=== PATIENT | male | born 1995 | race Caucasian/White ===

== ENCOUNTER 2024-07-09 14:13 | Emergency (ER) | payer OTHER, SELFPAY ==
--- NOTE | ~2024-07-09 | XR_ITS ---
HISTORY: Pain/swelling COMPARISON: None TECHNIQUE: 4 views of the left knee were performed FINDINGS: No acute or subacute fracture, erosion, lytic or sclerotic lesion. Medial tibiofemoral joint space narrowing is identified. No suprapatellar joint effusion is identified. The infrapatellar joint space is clear. IMPRESSION: Degenerative disease, without acute fracture. Reviewed, dictated and finalized at location A. OSTAT OPERATOR
[2024-07-09 14:21] VITALS: BP 151/94; PULSE 90; RESP 18; TEMP 36.4; O2SAT 98
--- NOTE | 2024-07-09 15:06 | ED_ITS ---
HPI - Extremity Injury (Lower) General Chief Complaint: Extremity Injury, Lower Stated Complaint: fall, L knee injury Time Seen by Provider: 07/09/24 15:06 Source: patient Mode of arrival: ambulatory Limitations: no limitations History of Present Illness HPI Narrative: This is a 28-year-old male who presents to the ED via EMS for chief complaint of left knee injury today. Patient works for [employer] and was stepping off his truck when he felt a pop in his left knee. States that he was caring very heavy boxes. States his knee has been bothering for quite some time but today was much worse with feeling this ?pop. Denies numbness, weakness or any further injury. Related Data Allergies Allergy/AdvReac Type Severity Reaction Status Date / Time No Known Allergies Allergy Verified 07/09/24 14:49 Review of Systems Review of Systems: All systems as dictated in HPI Exam Narrative: GENERAL: Well-appearing, well-nourished, and in no acute distress. HEAD: Normocephalic, atraumatic. EYES: PERRLA and EOMI. ENT: Nares clear, no rhinorrhea or epistaxis. Mucous membranes moist. Oropharynx without tonsillar hypertrophy exudate or other lesions. NECK: Supple. No adenopathy or masses. CHEST: No respiratory distress. Clear to auscultation. No wheezes rales or rhonchi HEART: Regular rate and rhythm. No murmur heard. Normal peripheral pulses. ABDOMEN: Soft, nontender, nondistended, normal active bowel sounds. MSK: LLE: Mild swelling to the left knee. Mild tenderness to the left joint line. Neurovascularly intact distally. able to fully extend the knee RLE: Benign SKIN: Warm, dry, no rash. NEURO: Alert and oriented x4. No focal deficits. PSYCH: Normal mood and affect. Course Vital Signs Vital signs: Vital Signs Temperature 97.6 F 07/09/24 14:21 Pulse Rate 90 07/09/24 14:21 Respiratory Rate 18 07/09/24 14:21 Blood Pressure 151/94 H 07/09/24 14:21 Pulse Oximetry 98 07/09/24 14:21 Temperature 97.6 F 07/09/24 14:21 Pulse Rate 86 07/09/24 16:50 Respiratory Rate 18 07/09/24 16:50 Blood Pressure 140/93 H 07/09/24 16:50 Pulse Oximetry 98 0215/25 16:50 MDM - Extremity Injury (Lower) MDM Narrative Medical decision making narrative: This is a 28-year-old male who presents to the ED for chief complaint of left knee injury that occurred today while at work for [employer]. Vitals are normal. Exam remarkable for the above. No significant traumatic findings. Neurovascular intact distally. Left knee x-rays showed no acute osseous findings. Patient was given Motrin and Tylenol here. Given knee immobilizer and crutches here. Encouraged follow-up with PCP on this issue. Patient will be discharged in stable condition. Supportive measures discussed and return precautions given. Patient is understanding and agreeable with plan for discharge with PCP follow-up. Differential Diagnosis Differential diagnosis: Likely ankle sprain and strain, acute internal derangement of knee, fracture of femur and fracture of hip Discharge Plan Discharge Clinical Impression: Acute internal derangement of knee Patient Disposition: Home, Self-Care Condition: Stable Instructions: Antibiotic Form Additional Instructions: Your exam today is reassuring. This is probably a sprained knee. Please use knee immobilizer and crutches until able to bear weight. Use Tylenol 500 mg and ibuprofen 600 mg every 6 hours as needed for pain control. If you have any new or worsening symptoms please return to the ER for further evaluation. Patient Language: Namibian Follow-up/Referrals: UNKNOWN,DOCTOR [Non-Staff] - Stand Alone Forms: Work/School Release IP Time of Disposition: 16:20
--- OUTSIDE RECORDS SUMMARY | 2024-07-09 15:20 | XMS_ITS | Clinical Summary ---
Author Organization [facility] Address [address] [place] [address] Care Team Providers Care Can Runner Name Role Phone Unavailable Primary Care Provider Unavailabl e Encounters Date Type Department Care Team Description 06/15/2024 External Device Data ST[facility] ABSTRACTION Provider, Abstract 06/15/2024 External Device Data [facility] ABSTRACTION Provider, Abstract 06/08/2024 External Device Data [facility] ABSTRACTION Provider, Abstract from Last 3 Months Social History Tobacco Use Types Packs/Day Years Used Date Smoking Tobacco: Never Assessed Sex and Gender Information Value Date Recorded Sex Assigned at Not on file Legal Sex Male 10:48 AM CDT Gender Identity Not on file Sexual Orientation Not on file Plan of Treatment Health Maintenance Due Date Last Done Comments DTAP/TDAP/TD VACCINES (1 - Tdap) 12/30/2014 HEPATITIS B VACCINES (1 of 3 - 19+ 3-dose series) 12/30/2014 INFLUENZA VACCINE (#1) 2023 HPV VACCINES Aged Out No longer eligi ble based on patient's age to complete this topic [place] [address]
--- OUTSIDE RECORDS SUMMARY | 2024-07-09 15:20 | XMS_ITS | Clinical Summary ---
Author Organization [facility] Address [facility] [place] [address] Care Team Providers Care Flower Machine Operator Name Role Phone None, Provider MD Primary Care Provider Unavaila ble Allergies No known active allergies Medications ondansetron (ZOFRAN-ODT) 4 MG disintegrating tablet Take 1 tablet (4 mg total) by mouth every 8 (eight) hours as needed for Nausea. 20 tablet Active Family History Medical History Relation Comments No Known Problems Father No Known Problems Mother Relation Status Comments Father Mother Social History Tobacco Use Types Packs/Day Years Used Date Smoking Tobacco: Every Day Cigarettes Smokeless Tobacco: Never Tobacco Cessation:Ready to Q uit: Not Asked Alcohol Use Standard Drinks/Week Comments Yes 0 (1 standard drink = 0.6 oz pur e alcohol) Sex and Gender Information Value Date Recorded Sex Assigned at Not on file Legal Sex Male 7:56 PM CDT Gender Identity Not on file Sexual Orientation Not on file Last Filed Vital Signs Vital Sign Reading Time Taken Comments Blood Pressure 142/82 08/20/2023 10:15 AM CDT Pulse 76 08/20/2023 10:15 AM CDT Temperature 36.4 C (97.5 F) 08/20/2023 10:15 AM CDT Respiratory Rate 18 08/20/2023 10:15 AM CDT Oxygen Saturation 100% 08/20/2023 10:15 AM CDT Inhaled Oxygen Concentration - - Weight 104.3 kg (230 lb) 08/20/2023 10:15 AM CDT Height 177.8 cm (5' 10 ) 08/20/2023 10:15 AM CDT Body Mass Index 33 08/20/2023 10:15 AM CDT Plan of Treatment Health Maintenance Due Date Last Done Comments Annual Physical 12/30/1998 Pneumococcal Vaccine: Pediat rics (0 to 5 Years) and At-Risk Patients (6 to 64 Years) (1 of 2 - PCV) 12/30/2001 HPV Vaccines (2 - Male 3-dos e series) 09/20/2012 08/23/2012 Hepatitis C 12/30/2013 DTaP, Tdap and Td Vaccines ( 1 - Tdap) 12/30/2014 Hepatitis B Vaccines (1 of 3 - 19+ 3-dose series) 12/30/2014 COVID-19 Vaccine (1 - 2023-2 5 season) 2024 Influenza Adult (#1) 2024 Meningococcal Vaccine Completed 11/08/2013 Meningococcal B Vaccine Aged Out No l onger eligible based on patient's age to complete this topic RSV Immunizations Under 20 Months Aged Out No longer eligible based on patient's age to complete this topic Insurance MEDICAID Care Teams Flower Machine Operator Relationship Specialty Start Date End Date None, Provider, PCP - General UNKNOWN PHYSICIAN SPECIALTY 08/20/23
--- OUTSIDE RECORDS SUMMARY | 2024-07-09 15:21 | XMS_ITS | Referral Summary ---
Author Organization [facility] Address [address] [place] [id number] Care Team Providers Care Supervisor Photoengraving Name Role Phone Unknown, Notinfile Primary Care Provider Unavail able Encounters Date Type Department Care Team Description 06/23/2024 8:29 PM BUSINESS MANAGEMENT MANAGER - 06/23/2024 9:44 PM [facility] Emergency [facility] Emergency Department [address] [place] [id number] Fall, initial encounter (Primary Dx); Acute midline low back pain without sciatica Discharge Disposition: Discharge to home or self care from Last 3 Months Allergies No known active allergies Medications al & mag hydroxide with simethicone-diphenh ydramine-lidocaine (MAGIC MOUTHWASH) suspension 1-1-1 Swish and swallow 10 mL every 4 (four) hours as needed (pain) 200 mL 3 Active oseltamivir (TAMIFLU) 75 mg capsule Take 1 capsule (75 mg total) by mouth every 12 (twelve) hours 10 capsule 4 Active ondansetron ODT (ZOFRAN-ODT) 4 mg disintegrating tablet Take 1 tablet (4 mg total) by mouth every 8 (eight) hours as needed for nausea or vomiting 20 tablet 4 Active promethazine-DM (PROMETHAZINE-DM) 1.25-3 mg/mL syrup Take 5 mL by mouth 4 (four) times a day as needed for cough 118 mL 4 Active albuterol HFA (PROVENTIL HFA,VENTOLIN HFA,PROAIR HFA) 90 mcg/actuation inhaler Inhale 2 puffs every 4 (four) hours as needed for wheezing 1 each 4 08/27/19 25 Active guaiFENesin (ROBITUSSIN) syrup 100 mg/5 mL Take 5-10 mL (100-200 mg total) by mouth every 4 (four) hours as needed for cough 60 mL 4 Active ondansetron ODT (ZOFRAN-ODT) 4 mg disintegrating tablet Take 1 tablet (4 mg total) by mouth every 6 (six) hours as needed for nausea or vomiting 20 tablet 4 Active amoxicillin-clavula son (AUGMENTIN) 875-125 mg per tablet Take 1 tablet by mouth every 12 (twelve) hours 20 tablet 4 Active predniSONE (DELTASONE) 50 mg tablet Take 1 tablet (50 mg) by mouth daily 5 tablet 4 Active HYDROcodone-acetami nophen (NORCO) 5-325 mg per tabletIndications:P ain Take 1 tablet by mouth every 6 (six) hours as needed for pain 20 tablet 4 Active naproxen (NAPROSYN) 500 mg tablet Take 1 tablet (500 mg total) by mouth 2 (two) times a day with meals 14 tablet 5 Active lidocaine (LIDODERM) 5 % Place 1 patch on the skin daily Remove & discard patch within 12 hours or as directed by MD. 7 patch 5 Active Social History Tobacco Use Types Packs/Day Years Used Date Smoking Tobacco: Never Assessed Personal Safety Answer Date Recorded Have you ever been in or are you currently in a harmful physical or emotional relationship or is someone making you feel afraid or unsafe? Denies 06/23/2024 Sex and Gender Information Value Date Recorded Sex Assigned at Not on file Legal Sex Male 6:18 PM BUSINESS MANAGEMENT MANAGER Gender Identity Not on file Sexual Orientation Not on file Last Filed Vital Signs Vital Sign Reading Time Taken Comments Blood Pressure 103/67 06/23/2024 9:30 PM BUSINESS MANAGEMENT MANAGER Pulse 71 06/23/2024 9:30 PM BUSINESS MANAGEMENT MANAGER Temperature 37.2 C (99 F) 06/23/2024 6:47 PM BUSINESS MANAGEMENT MANAGER Respiratory Rate 19 06/23/2024 6:47 PM BUSINESS MANAGEMENT MANAGER Oxygen Saturation 97% 06/23/2024 9:30 PM BUSINESS MANAGEMENT MANAGER Inhaled Oxygen Concentration - - Weight 102.9 kg (226 lb 13.7 oz) 06/23/2024 6:47 PM BUSINESS MANAGEMENT MANAGER Height 177.8 cm (5' 10 ) 06/23/2024 6:47 PM BUSINESS MANAGEMENT MANAGER Body Mass Index 32.55 06/23/2024 6:47 PM BUSINESS MANAGEMENT MANAGER Plan of Treatment Not on file Procedures Procedure Name Priority Date/Time Associated Diagnosis Comments CT LUMBAR SPINE WO CONTRAST ED 06/23/2024 7:31 PM BUSINESS MANAGEMENT MANAGER from Last 3 Months Results * CT Lumbar Spine WO Contrast (06/23/2024 7:31 PM BUSINESS MANAGEMENT MANAGER) Anatomical Region Laterality Modality Spine N/A Computed Tomogra phy 06/23/2024 7:34 PM BUSINESS MANAGEMENT MANAGER Narrative 06/23/2024 7:36 PM BUSINESS MANAGEMENT MANAGER EXAM DESCRIPTION: CT LUMBAR SPINE WO CONTRAST REASON FOR STUDY: Low back pain, trauma, lower back pain Pt states today at approx 1330 he slipped on ice and landed on his bottom, now having lower back pain on both sides/middle. Did not hit head. Per ordering Dr, wanted scan to go through coccyx. TECHNIQUE: Axial images acquired through the lumbar spine without intravenous contrast. Reconstructed coronal and sagittal MPR images reviewed. All images stored on PACS. Automated exposure control was used as a dose optimization technique for this examination. COMPARISON: None FINDINGS: SEGMENTATION: No transitional anatomy. The lowest well-developed disc space is labeled L5-S1. ALIGNMENT: Normal. VERTEBRAE: No fracture. Vertebral heights well-maintained. DISC HEIGHT: Well-maintained. HARDWARE: None in the spine. INDIVIDUAL DISC LEVELS: Canal contents are not well seen by CT. L1-2: No significant osseous spinal canal or neuroforaminal stenosis. L2-3: No significant osseous spinal canal or neuroforaminal stenosis. L3-4: No significant osseous spinal canal or neuroforaminal stenosis. L4-5: No significant osseous spinal canal or neuroforaminal stenosis. L5-S1: Mild circumferential bulging is seen. Some minimal marginal spurring is seen of the endplates. Canal and neural foraminal openings are mildly narrowed. VISUALIZED RIBS: No fractures. SOFT TISSUES: No significant or acute finding in adjacent soft tissues. OTHER: No other significant finding. IMPRESSION: No lumbar spine fracture. Mild spondylosis at L5-S1. The sacrum and coccyx was included on this study. No evidence of acute injury of the bones is seen. THIS IS AN ELECTRONICALLY VERIFIED FINAL REPORT 06/23/2024 7:36 PM - Electronically signed by Grady Fraser M.D. KH: RAVI Report ID: [id number] Reading Location: [id number] Procedure Note Grady Fraser MD - 06/23/2024 EXAM DESCRIPTION: CT LUMBAR SPINE WO CONTRAST REASON FOR STUDY: Low back pain, trauma, lower back pain Pt states today at approx 1330 he slipped on ice and landed on his bottom,now having lower back pain on both sides/middle. Did not hit head. Perordering Dr, wanted scan to go through coccyx. TECHNIQUE: Axial images acquired through the lumbar spine withoutintravenous contrast. Reconstructed coronal and sagittal MPR images reviewed. Allimages stored on PACS. Automated exposure control was used as a dose optimization technique forthis examination. COMPARISON: None FINDINGS: SEGMENTATION: No transitional anatomy. The lowestwell-developed disc space is labeled L5-S1. ALIGNMENT: Normal. VERTEBRAE: No fracture. Vertebral heights well-maintained. DISC HEIGHT: Well-maintained. HARDWARE: None in the spine. INDIVIDUAL DISC LEVELS: Canal contents are not well seen by CT. L1-2: No significant osseous spinal canal or neuroforaminal stenosis. L2-3: No significant osseous spinal canal or neuroforaminal stenosis. L3-4: No significant osseous spinal canal or neuroforaminal stenosis. L4-5: No significant osseous spinal canal or neuroforaminal stenosis. L5-S1: Mild circumferential bulging is seen. Some minimal marginalspurring is seen of the endplates. Canal and neural foraminal openings are mildly narrowed. VISUALIZED RIBS: No fractures. SOFT TISSUES: No significant or acute finding in adjacent soft tissues. OTHER: No other significant finding. IMPRESSION: No lumbar spine fracture. Mild spondylosis at L5-S1. The sacrum and coccyx was included on this study. No evidence of acute injury of the bones is seen. THIS IS AN ELECTRONICALLY VERIFIED FINAL REPORT 06/23/2024 7:36 PM - Electronically signed by Grady Fraser M.D. KH: RAVI Report ID: [id number] Reading Location: [id number] Stella Rodri [facility] IMG CT PROCEDURES Final Result from Last 3 Months Insurance [facility] Care Teams Supervisor Photoengraving Relationship Specialty Start Date End Date Unknown, Notinfile PCP - General 02/08/24
--- OUTSIDE RECORDS SUMMARY | 2024-07-09 15:21 | XMS_ITS | Clinical Summary ---
Author Organization [facility] Address [address] [place] [address] Care Team Providers Care Steamtable Worker Name Role Phone Unknown, Notinfile Primary Care Provider Unavail able Allergies No known active allergies Medications al [...] directed by MD. 7 patch 5 Active Encounters Date Type Department Care Team Description 06/23/2024 8:29 PM WET END HELPER - 06/23/2024 9:44 PM WET END HELPER Emergency [facility] Emergency Department [address] [place] [address] Fall, initial encounter (Primary Dx); Acute midline low back pain without sciatica Discharge Disposition: Discharge to home or self care from Last 3 Months Social History Tobacco [...] on file Legal Sex Male 6:18 PM WET END HELPER Gender Identity Not on file Sexual Orientation Not on file Last Filed Vital Signs Vital Sign Reading Time Taken Comments Blood Pressure 103/67 06/23/2024 9:30 PM WET END HELPER Pulse 71 06/23/2024 9:30 PM WET END HELPER Temperature 37.2 C (99 F) 06/23/2024 6:47 PM WET END HELPER Respiratory Rate 19 06/23/2024 6:47 PM WET END HELPER Oxygen Saturation 97% 06/23/2024 9:30 PM WET END HELPER Inhaled Oxygen Concentration - - Weight 102.9 kg (226 lb 13.7 oz) 06/23/2024 6:47 PM WET END HELPER Height 177.8 cm (5' 10 ) 06/23/2024 6:47 PM WET END HELPER Body Mass Index 32.55 06/23/2024 6:47 PM WET END HELPER Plan of Treatment Health Maintenance Due Date Last Done Comments Depression Screening 1995 Hepatitis C Screening 1995 DTaP/Tdap/Td Vaccine (1 - Tdap) 12/30/2006 Varicella Vaccines (1 of 2 - 13+ 2-dose series) 12/30/2008 HPV Vaccines (2 - Male 3-dos e series) 09/20/2012 08/23/2012 Hepatitis B Screening 12/30/2013 Regular Well Visit/Exam 18-64 12/30/2013 Influenza Vaccine (#1) 2024 Pneumococcal vaccine <65 Aged Out No longer eligible based on patient's age to complete this topic Procedures Procedure Name Priority Date/Time Associated Diagnosis Comments CT LUMBAR SPINE WO CONTRAST ED 06/23/2024 7:31 PM WET END HELPER from Last 3 Months Results * CT Lumbar Spine WO Contrast (06/23/2024 7:31 PM WET END HELPER) Anatomical Region Laterality Modality Spine N/A Computed Tomogra phy 06/23/2024 7:34 PM WET END HELPER Narrative 06/23/2024 7:36 PM WET END HELPER EXAM DESCRIPTION: CT LUMBAR SPINE WO CONTRAST [...] Grady Fraser M.D. KH: RAVI Report ID: [id number] Reading Location: [id number] Procedure Note Grady Fraser MD - 06/23/2024 [...] Grady Fraser M.D. KH: RAVI Report ID: [id number] Reading Location: [place] [id number] PROCEDURES Final Result from Last 3 Months Insurance [facility] Care Teams Steamtable Worker Relationship Specialty Start Date End Date Unknown, Notinfile PCP - General 02/08/24
[2024-07-09] MEDS: ACETAMINOPHEN 500 MG TABLET 1000 MG PO (16:06)
[2024-07-09] MEDS: IBUPROFEN 400 MG TABLET 800 MG PO (16:06)
[2024-07-09 16:50] VITALS: BP 140/93; PULSE 86; RESP 18; O2SAT 98
== END 2024-07-09 17:07 | disposition home or self-care (01) ==
PROVIDERS: Emergency Provider Physician Assistant
DX: M23.92 Unspecified internal derangement of left knee (principal); S89.92XA Unspecified injury of left lower leg, initial encounter; X50.9XXA Other and unspecified overexertion or strenuous movements or postures, initial encounter
CPT/HCPCS: 73564; 99283; A9270